=== PATIENT | female | born 1950 | race Caucasian/White ===

== ENCOUNTER 2017-09-14 11:58 | Emergency (ER) | payer MEDICARE, OTHER, SELFPAY ==
[2017-09-14 12:00] VITALS: BP 127/54; PULSE 87; RESP 22; TEMP 36.9; O2SAT 92; BMI 31.3
--- NOTE | 2017-09-14 12:14 | XR_ITS ---
XR chest portable HISTORY: ITS.REASON: non prod cough ORDERING PHYSICIAN: Tamanna Dorantes MD PATIENT AGE: 67 years COMPARISON: 07/02/2016 FINDINGS: The cardiomediastinal silhouette and pulmonary vascularity are within normal limits. Patchy density is present in the left lower lobe consistent with pneumonia. Upper lobes are clear.. No acute bony abnormalities. IMPRESSION: Left lower lobe pneumonia
--- NOTE | 2017-09-14 12:31 | HMH.EDGENADL ---
ED Disposition Clinical Impression: Influenza A, COPD with exacerbation Disposition: Home, Self-Care Condition on Discharge: Good Instructions: Influenza Additional Instructions: Medrol, continue inhalers, see your family MD in one to two days for recheck. Prescriptions: methylPREDNISolone [Medrol] 4 mg PO DAILY #1 tab.ds.pk - Critical Care Critical Care Time: No Attestation: On 09/14/17, the high probability of a clinically significant, sudden or life threatening deterioration of the following system(s) required my full and direct attention, intervention and personal management. The time I documented below is in addition to time spent performing reported procedures but includes the following listed in this critical care notation. Medical Decision Making Vital Signs: 09/14/17 12:00 09/14/17 12:45 09/14/17 14:26 Temperature 98.4 F Temperature Source Oral Pulse Rate 88 Pulse Rate [Left Brachial] 87 86 Respiratory Rate 22 20 Blood Pressure [Right Arm] 127/54 175/91 Blood Pressure Mean [Right Arm] 78 119 Blood Pressure Source [Right Arm] Automatic Cuff Automatic Cuff Blood Pressure Position [Right Arm] Sitting Sitting 02 Sat by Pulse Oximetry 92 L 97 Oxygen Delivery Method Nasal Cannula Nasal Cannula Oxygen Flow Rate (LPM) 3 - Lab Data Lab Results 09/14/17 12:05: Influenza Type A Ag Positive A, Influenza Type B Ag Negative 09/14/17 13:41: WBC 8.1, RBC 4.22, Hgb 13.0, Hct 41.2, MCV 97.8, MCH 30.7, MCHC 31.4 L, RDW 14.0, Plt Count 144, MPV 8.7, Neut % (Auto) 83.1 H, Lymph % (Auto) 11.8, [place] % (Auto) 4.4, Eos % (Auto) 0.6, Baso % (Auto) 0.1, Neut # (Auto) 6.7, Lymph # (Auto) 0.9, [place] # (Auto) 0.4, Eos # (Auto) 0.1, Baso # (Auto) 0.0 09/14/17 13:41: Sodium 142, Potassium 3.5, Chloride 105, Carbon Dioxide 31, Anion Gap 9.5, BUN 6 L, Creatinine 0.67, Estimated Creat Clear 76, Estimated GFR 87, Est GFR ( Amer) 106, Glucose 101, Calcium 7.8 L, Total Bilirubin 0.2, AST 34, ALT 14, Alkaline Phosphatase 114, Total Protein 5.3 L, Albumin 2.1 L, Globulin 3.2, Albumin/Globulin Ratio 0.7 L 09/14/17 13:41: Lactic Acid 1.1 Result diagrams: 09/14/17 13:41 09/14/17 13:41 Orders (Tests/Meds): ED MEDICATIONS Generic Name Dose Route Start Last Admin Trade Name Freq PRN Reason Stop Dose Admin Sodium Chloride 10 ml 09/14/17 12:12 Saline Flush 10ml Syringe IV 10/14/17 12:11 NEEDED PRN Maintain IV Site Sodium Chloride 10 ml 09/14/17 12:47 Saline Flush 10ml Syringe IV 10/14/17 12:46 NEEDED PRN Maintain IV Site Discontinued Medications Generic Name Dose Route Start Last Admin Trade Name Freq PRN Reason Stop Dose Admin Albuterol/Ipratropium 3 ml 09/14/17 12:29 09/14/17 12:43 Duoneb 3ml Neb IH 09/14/17 12:30 3 ml ONCE ONE Administration Sodium Chloride 1,000 mls @ 999 mls/hr 09/14/17 12:15 09/14/17 12:17 Sod Chloride 0.9% 1000ml Bag IV 09/14/17 13:15 999 mls/hr .Q1H1M JACQUELYN Administration Methylprednisolone Sodium Succinate 125 mg 09/14/17 12:25 09/14/17 12:36 Solu-Medrol 125mg/2ml Vial IV 09/14/17 12:26 125 mg ONCE ONE Administration ORDERS Category Date Time Status Chest XR -- portable [XR chest portable] Stat Exams 09/14/17 12:14 Taken - Radiology Data #1 Image(s): Chest Image Reviewed: Yes I reviewed the patient's radiology image Preliminary Findings: Abnormal Atelectasis left base, COPD. - Omega Inquiry Pt receiving controlled substance: No Medical Decision Making Narrative: Afebrile, normal labs except flu, clinically with COPD exacerbation, sats mid to upper 90's, feeling better overall, ready for d/c, has taken Medrol in past and tolerated well. Has inhalers at home. General Adult HPI - General Chief complaint: Upper Respiratory Infection Stated complaint: CONGESTION Time Seen by Provider: 09/14/17 12:20 Mode of Arrival: EMS Limitations: No Limitations Description of
--- NOTE | 2017-09-14 12:34 | ED_ITS ---
ED Disposition Clinical Impression: Influenza A, COPD with exacerbation Disposition: Home, Self-Care Condition on Discharge: Good Instructions: Influenza Additional Instructions: Medrol, continue inhalers, see your family MD in one to two days for recheck. Prescriptions: methylPREDNISolone [Medrol] 4 mg PO DAILY #1 tab.ds.pk - Critical Care Critical Care Time: No Attestation: On 09/14/17, the high probability of a clinically significant, sudden or life threatening deterioration of the following system(s) required my full and direct attention, intervention and personal management. The time I documented below is in addition to time spent performing reported procedures but includes the following listed in this critical care notation. Medical Decision Making Vital Signs: 09/14/17 12:00 09/14/17 12:45 09/14/17 14:26 Temperature 98.4 F Temperature Source Oral Pulse Rate 88 Pulse Rate [Left Brachial] 87 86 Respiratory Rate 22 20 Blood Pressure [Right Arm] 127/54 175/91 Blood Pressure Mean [Right Arm] 78 119 Blood Pressure Source [Right Arm] Automatic Cuff Automatic Cuff Blood Pressure Position [Right Arm] Sitting Sitting 02 Sat by Pulse Oximetry 92 L 97 Oxygen Delivery Method Nasal Cannula Nasal Cannula Oxygen Flow Rate (LPM) 3 - Lab Data Lab Results 09/14/17 12:05: Influenza Type A Ag Positive A, Influenza Type B Ag Negative 09/14/17 13:41: WBC 8.1, RBC 4.22, Hgb 13.0, Hct 41.2, MCV 97.8, MCH 30.7, MCHC 31.4 L, RDW 14.0, Plt Count 144, MPV 8.7, Neut % (Auto) 83.1 H, Lymph % (Auto) 11.8, [place] % (Auto) 4.4, Eos % (Auto) 0.6, Baso % (Auto) 0.1, Neut # (Auto) 6.7 , Lymph # (Auto) 0.9, [place] # (Auto) 0.4, Eos # (Auto) 0.1, Baso # (Auto) 0.0 09/14/17 13:41: Sodium 142, Potassium 3.5, Chloride 105, Carbon Dioxide 31, Anion Gap 9.5, BUN 6 L, Creatinine 0.67, Estimated Creat Clear 76, Estimated GFR 87, Est GFR ( Amer) 106, Glucose 101, Calcium 7.8 L, Total Bilirubin 0.2, AST 34, ALT 14, Alkaline Phosphatase 114, Total Protein 5.3 L, Albumin 2.1 L, Globulin 3.2, Albumin/Globulin Ratio 0.7 L 09/14/17 13:41: Lactic Acid 1.1 Result diagrams: 09/14/17 13:41 09/14/17 13:41 Orders (Tests/Meds): ED MEDICATIONS Generic Name Dose Route Start Last Admin Trade Name Mark Anthonyq PRN Reason Stop Dose Admin Sodium Chloride 10 ml 09/14/17 12:12 Saline Flush 10ml Syringe IV 10/14/17 12:11 NEEDED PRN Maintain IV Site Sodium Chloride 10 ml 09/14/17 12:47 Saline Flush 10ml Syringe IV 10/14/17 12:46 NEEDED PRN Maintain IV Site Discontinued Medications Generic Name Dose Route Start Last Admin Trade Name Mark Anthonyq PRN Reason Stop Dose Admin Albuterol/Ipratropium 3 ml 09/14/17 12:29 09/14/17 12:43 Duoneb 3ml Neb IH 09/14/17 12:30 3 ml ONCE ONE Administration Sodium Chloride 1,000 mls @ 999 mls/hr 09/14/17 12:15 09/14/17 12:17 Sod Chloride 0.9% 1000ml Bag IV 09/14/17 13:15 999 mls/hr .Q1H1M JACQUELYN Administration Methylprednisolone Sodium Succinate 125 mg 09/14/17 12:25 09/14/17 12:36 Solu-Medrol 125mg/2ml Vial IV 09/14/17 12:26 125 mg ONCE ONE Administration ORDERS Category Date Time Status Chest XR -- portable [XR chest portable] Stat Exams 09/14/17 12:14 Taken
[2017-09-14 12:45] VITALS: PULSE 87; PULSE 88
[2017-09-14 13:56] LABS: Basophils % 0.1 % (0.1-2.0); Eosinophils # 0.1 K/mm3 (0.0-0.4); Eosinophils % 0.6 % (0.1-12.0); Hematocrit 41.2 % (37.0-47.0); Lymphocytes # 0.9 K/mm3 (0.7-4.5); Lymphocytes % 11.8 K/mm3 (10-50); Mean Corpuscular HGB Conc 31.4 g/dL (31.8-35.4); Mean Corpuscular Hemoglobin 30.7 pg (27.0-31.2); Mean Corpuscular Volume 97.8 fl (81-99); Mean Platelet Volume 8.7 fl (7.4-10.4); Monocytes # 0.4 K/mm3 (0.1-1.0); Monocytes % 4.4 % (1.7-9.3); Neutrophils # 6.7 K/mm3 (1.8-7.8); Neutrophils % 83.1 % (37.0-80.0); Platelet Count 144 K/mm3 (142-424); Red Blood Count 4.22 M/mm3 (4.20-5.40); White Blood Count 8.1 K/mm3 (4.8-10.8)
[2017-09-14 14:13] LABS: Alanine Aminotransferase 14 U/L (12-78); Albumin Level 2.1 gm/dL (3.4-5.0); Albumin/Globulin Ratio 0.7 (1.1-1.8); Alkaline Phosphatase 114 U/L (46-116); Anion Gap 9.5 mEq/L (5-15); Aspartate Amino Transferase 34 U/L (15-37); Bilirubin,Total 0.2 mg/dL (0.2-1.0); Blood Urea Nitrogen 6 mg/dL (7-18); Calcium 7.8 mg/dL (8.5-10.1); Carbon Dioxide 31 mmol/L (21.0-32.0); Chloride 105 mmol/L (98-107); Creatinine Clearance Estimated 76 mL/min (0-300); Creatinine,Serum 0.67 mg/dL (0.55-1.02); Estimated Glomerular Filt Rate 87 ml/min (>60); GFR (African American) 106 ML/MIN (>60); Globulin 3.2 gm/dl (1.3-3.2); Glucose 101 mg/dL (74-106); Potassium 3.5 mmoL/L (3.5-5.1); Sodium 142 mmol/L (136-145); Total Protein,Serum 5.3 gm/dL (6.4-8.2)
[2017-09-14 14:17] LABS: Lactic Acid 1.1 mmol/L (0.4-2.0)
[2017-09-14 14:26] VITALS: BP 175/91; PULSE 86; RESP 20; O2SAT 97
[2017-09-14 14:51] VITALS: BP 157/78; PULSE 87; RESP 20; TEMP 36.9; O2SAT 92
== END 2017-09-14 14:53 | disposition home or self-care (01) ==
PROVIDERS: Emergency Provider Emergency Medicine; Family Provider Nurse Practitioner Family
DX: J44.1 Chronic obstructive pulmonary disease with (acute) exacerbation (principal); J10.1 Influenza due to other identified influenza virus with other respiratory manifestations
CPT/HCPCS: 71045; 80053; 83605; 85025; 87275; 87276; 96365; 96374; 96375; 99284

== ENCOUNTER → 2018-06-16 14:32 | Outpatient (REF) | payer MEDICARE, OTHER, SELFPAY ==
[2018-06-16 18:18] LABS: Basophils % 0.3 % (0.1-2.0); Eosinophils # 0.2 K/mm3 (0.0-0.4); Eosinophils % 3.2 % (0.1-12.0); Hematocrit 40.8 % (37.0-47.0); Hemoglobin 12.6 g/dL (12.2-16.2); Lymphocytes # 2.2 K/mm3 (0.7-4.5); Lymphocytes % 34.7 K/mm3 (10-50); Mean Corpuscular Hemoglobin 31.4 pg (27.0-31.2); Mean Corpuscular Volume 101.4 fl (81-99); Mean Platelet Volume 9.4 fl (7.4-10.4); Monocytes # 0.5 K/mm3 (0.1-1.0); Monocytes % 7.4 % (1.7-9.3); Neutrophils # 3.5 K/mm3 (1.8-7.8); Neutrophils % 54.4 % (37.0-80.0); Platelet Count 362 K/mm3 (142-424); Red Blood Count 4.02 M/mm3 (4.20-5.40); Red Cell Distribution Width 14.6 % (11.5-17.5); White Blood Count 6.4 K/mm3 (4.8-10.8)
[2018-06-16 18:35] LABS: Alanine Aminotransferase 27 U/L (12-78); Albumin Level 2.5 gm/dL (3.4-5.0); Albumin/Globulin Ratio 0.8 (1.1-1.8); Alkaline Phosphatase 197 U/L (46-116); Anion Gap 7.2 mEq/L (5-15); Aspartate Amino Transferase 24 U/L (15-37); Bilirubin,Total 0.2 mg/dL (0.2-1.0); Blood Urea Nitrogen 18 mg/dL (7-18); Calcium 8.6 mg/dL (8.5-10.1); Carbon Dioxide 30 mmol/L (21.0-32.0); Chloride 107 mmol/L (98-107); Chol/HDL Ratio 2.2 (1-3.5); Cholesterol 158 mg/dL (140-200); Creatinine,Serum 0.75 mg/dL (0.55-1.02); Estimated Glomerular Filt Rate 76 ml/min (>60); GFR (African American) 92 ML/MIN (>60); Globulin 3.1 gm/dl (1.3-3.2); Glucose 77 mg/dL (74-106); HDL Cholesterol 72 mg/dL (29-89); LDL Cholesterol 63 mg/dL (0-130); Potassium 4.2 mmoL/L (3.5-5.1); Sodium 140 mmol/L (136-145); T4 (Thyroxine) 5.6 ug/dl (4.7-13.3); Total Protein,Serum 5.6 gm/dL (6.4-8.2); Triglycerides 113 mg/dL (30-200); VLDL Cholesterol 23 mg/dL (0-40)
[2018-06-20 06:15] LABS: Vitamin D 25 Hydroxy 46.7 ng/mL (30.0-100.0)
== END ==
LOC: LAB 14:32
PROVIDERS: Visit Provider Nurse Practitioner Family
DX: R53.83 Other fatigue (principal); Z79.899 Other long term (current) drug therapy
CPT/HCPCS: 80053; 80061; 82652; 84436; 84443; 85025

== ENCOUNTER → 2018-06-23 11:24 | Outpatient (CLI) | payer MEDICARE, OTHER, SELFPAY ==
--- NOTE | 2018-06-23 11:28 | NVE_ITS ---
Venous Exam Indications: 729.81 Swelling of limb. 729.5 Pain in limb. Discoloration lower extremities IMPRESSIONS 1. There is no evidence of significant Reflux. 2. No evidence of deep or superficial vein thrombosis involving the left lower extremity 3. No evidence of deep or superficial vein thrombosis involving the right lower extremity Complete lower extremity venous duplex evaluation. Doppler flow study including spectral analysis, color and luo scale imaging. Location: Vascular laboratory. Patient status: Outpatient. CRITICAL FINDINGS - Reported to: lakisha - Read back and verified. - 06/23/18 1130 - None Tables: Venous flow and imaging: + +-------+ + Location Overall Flow properties + +-------+ + Right common femoral Patent Normal phasicity; spontaneous; normal augmentation; compressible + +-------+ + Right saphenofemoral junction Patent Compressible + +-------+ + Right profunda femoral Patent Compressible + +-------+ + Right femoral Patent Normal phasicity; spontaneous; normal augmentation; compressible; no reflux + +-------+ + Right greater saphenous Patent Normal phasicity; spontaneous; normal augmentation; compressible + +-------+ + Right popliteal Patent Normal phasicity; spontaneous; normal augmentation; compressible + +-------+ + Right posterior tibial Patent Compressible + +-------+ + Right peroneal Patent Compressible + +-------+ + Right gastrocnemius Patent Compressible + +-------+ + Right soleal Patent Compressible + +-------+ + Left common femoral Patent Normal phasicity; spontaneous; normal augmentation; compressible + +-------+ + Left saphenofemoral junction Patent Compressible + +-------+ + Left profunda femoral Patent Compressible + +-------+ + Left femoral Patent Normal phasicity; spontaneous; normal augmentation; compressible + +-------+ + Left greater saphenous Patent Normal phasicity; spontaneous;
--- NOTE | 2018-06-23 11:34 | XR_ITS ---
XR chest 2V HISTORY: Shortness of air with cough ITS.REASON: elevated alk phos ORDERING PHYSICIAN: Andrea Murphy MD PATIENT AGE: 68 years COMPARISON: 09/14/2017 FINDINGS: The cardiomediastinal silhouette and pulmonary vascularity are within normal limits. No lobar consolidation or collapse is evident. There is faint opacity noted in the left lung base has a somewhat rounded contour measuring 16 mm. While this could represent summation artifact, an underlying pulmonary nodule is also considered. This is present on 2 PA views of the chest. Is not readily apparent on previous studies however, there was pneumonia in this region on the most recent radiograph of 09/14/2017. The remaining lungs are clear. There are degenerative changes in the thoracic spine. Surgical clips are present along the left hemidiaphragm. IMPRESSION: Faint nodular opacity in the left lung base possibly due to summation artifact. Consider follow-up to confirm stability or resolution. If this persists, then CT may be of further value in this patient with elevated alkaline phosphatase
[2018-06-23 13:15] LABS: C-Reactive Protein 0.9 mg/L (0.0-0.9)
[2018-06-23 15:26] LABS: Erythrocyte Sedimentation Rate 23 mm/hr (0-30)
== END ==
PROVIDERS: Nurse Practitioner Family; PCP Emergency Medicine; Visit Provider Internal Medicine Cardiovascular Disease
DX: L81.9 Disorder of pigmentation, unspecified (principal); M79.661 Pain in right lower leg; M79.662 Pain in left lower leg; R60.9 Edema, unspecified; R74.8 Abnormal levels of other serum enzymes
CPT/HCPCS: 36415; 71046; 85651; 86140; 93970

== ENCOUNTER → 2018-06-28 07:08 | Outpatient (CLI) | payer MEDICARE, OTHER, SELFPAY ==
--- NOTE | 2018-06-28 07:10 | CA_ITS ---
PROCEDURE: 2-D M-mode and color Doppler study INDICATIONS FOR THE TEST: Chest pain COPD+ Heart Murmur+ Tobacco Smoking Palpitations+ Fatigue Syncope Edema+ Hypertension+Diabetes Mellitus Rheumatic Fever SOB+ZAIDI Obesity Hyperlipidemia Family History HD Additional History Abn EKG PATIENT INFORMATION HEIGHT: 67 WEIGHT: 158 GENDER: Female B/P: 130/78 2-D/M-MODE INTERPRETATION: 2-D MEASUREMENTS OBSERVED VALUES IN CMS Right Ventricular Dimension (RVDd) 2.8 Interventricular Septum (Thickness)(IVsd) 1.0 Left Ventricular Internal Dimensions(LVIDd) 4.5 Left Ventricular Posterior Wall (Thickness)(LVPWd) 1.0 Aortic Root 3.1 Aortic Cusp Separation 2.3 Left Atrial Dimensions (LAD) 4.8 2D 1. Left atrium is moderately enlarged, left ventricle is normal size, there is no concentric left ventricular hypertrophy, visually estimated ejection fraction of 55% with no regional wall motion abnormality. 2. The right atrium and right ventricle are mildly enlarged with normal contractility. 3. The aortic valve is minimally thickened and fibrosed. 4. The mitral and tricuspid valve are grossly normal. 5. The pulmonic valve is poorly visualized. 6. No significant pericardial effusion noted. DOPPLER INTERROGATION: Doppler interrogation of the aortic, mitral and tricuspid valvular presence of mild mitral and tricuspid regurgitation, tricuspid regurgitation jet velocity is inadequate for calculation of the right ventricular systolic pressure, diastolic parameters are inconclusive. CONCLUSION: 1. Moderately enlarged left atrium, normal left ventricular size, visually estimated ejection fraction 55% with no regional wall motion abnormality, diastolic parameters are inconclusive. 2. Mild mitral and tricuspid regurgitation 3. No significant pericardial effusion noted.
--- NOTE | 2018-06-28 07:10 | NM_ITS ---
CARDIOLITE SPECT MYOCARDIAL PERFUSION SCAN, REST AND STRESS: EXERCISE STRESS [facility] REVIEW QGS EF AND WALL MOTION EVALUATION: QPS - PERFUSION EVALUATION HISTORY: SOB, Fatigue, Tobacco use DOSE: 10.17 mCi technetium 99m mibi intravenously at rest followed by 31.9 mCi technetium 99m mibi following the intravenous ministration of 0.4 mg of Lexiscan. Resting blood pressure is 136/73. Stress blood pressure 123/70. FINDINGS: Ejection fraction is calculated to be 61%. Stress images reveal severely decreased activity in the anterior lateral and apical wall. Rest images reveal improved myocardial activity. IMPRESSION: High risk abnormal stress test with anterior lateral and apical reversible ischemia combined by normal ejection fraction but apical hypokinesis
--- NOTE | 2018-06-28 08:42 | HMH.ITSHM ---
Current Home Medications as stated by this patient Abi Jones or senior patient account representative. []BUSPIRONE VITAMIN B12 POLYETHYLENE ODANSETRON PANTOPRAZOLE MIRTAZAPINE FUROSEMIDE ASA ATORVASTATIN METOPROLOL
== END ==
PROVIDERS: Family Provider Nurse Practitioner Family; PCP Emergency Medicine; Visit Provider Internal Medicine Cardiovascular Disease
DX: F32.9 Major depressive disorder, single episode, unspecified (principal); F41.9 Anxiety disorder, unspecified; J44.1 Chronic obstructive pulmonary disease with (acute) exacerbation; L81.9 Disorder of pigmentation, unspecified; M79.661 Pain in right lower leg; M79.662 Pain in left lower leg; R06.09 Other forms of dyspnea; R60.9 Edema, unspecified; R94.31 Abnormal electrocardiogram [ECG] [EKG]
CPT/HCPCS: 78452; 93017; 93306; A9502; J2785

== ENCOUNTER → 2018-07-22 13:34 | Outpatient (CLI) | payer MEDICARE, OTHER, SELFPAY ==
--- NOTE | 2018-07-22 13:38 | CT_ITS ---
CT chest wo con HISTORY: Follow-up pulmonary nodule ITS.REASON: nodule ORDERING PHYSICIAN: Alina George PATIENT AGE: 68 years COMPARISON: None Technique: Axial images obtained with sagittal and coronal reformats. All CT scans at the facility use one or more dose reduction, viz: automated exposure control, ma/kV adjustment per patient size (including targeted exams where dose is matched to indication, i.e. head), or iterative reconstruction technique. FINDINGS: There are scattered small nodes within the mediastinum some which are calcified. Coronary artery calcification is present. Normal heart size without evidence of pericardial effusion. There is hyperinflation with attenuation of the pulmonary vessels and bronchial thickening consistent with COPD. There are a few scattered noncalcified pulmonary nodules including a 4 mm nodule in the right upper lobe, image #33, 5 mm nodule left upper lobe centrally image #43, 6 mm nodule within the major fissure on the left image #45, 4 mm nodule also within the major fissure on the left with central lucency image #45. Fibrotic or atelectatic changes are present in the left lung base. Surgical clips are present from prior gastric surgery. There are fibrotic changes within the right middle lobe.. Nodular density in the lingula also noted at 8 mm and may correspond to the radiographic abnormality. No acute bony findings. There is some cortical irregularity involving the lower aspect of the manubrium anteriorly consistent with an old manubrial fracture. Upper abdominal images are unremarkable. IMPRESSION: 1. Scattered noncalcified pulmonary nodules as described above with the largest nodule in the lingula at 8 mm. These are nonspecific. Recommend 6 month follow-up in this patient high-risk patient. 2. COPD. Coronary artery calcifications are also noted
== END ==
PROVIDERS: PCP Nurse Practitioner Family; Visit Provider Nurse Practitioner Family
DX: R91.1 Solitary pulmonary nodule (principal)
CPT/HCPCS: 71250

== ENCOUNTER → 2018-08-09 13:09 | Outpatient (CLI) | payer MEDICARE, OTHER, SELFPAY ==
--- NOTE | 2018-08-09 13:12 | XR_ITS ---
XR hip LT 2-3V w/pelvis HISTORY: Left hip pain ITS.REASON: pain ORDERING PHYSICIAN: Alina George PATIENT AGE: 68 years COMPARISON: 09/23/2016 FINDINGS: There is a left femoral decompression screw with a short intramedullary josselin. There is an old intertrochanteric fracture with minimal displacement of small lesser trochanteric fragment. No obvious orthopedic complications. There is sclerosis of the superior aspect of the SI joint. As is not significant change from 09/23/[address] scan of 02/08/2015 IMPRESSION: 1. No acute finding. 2. Prior ORIF left hip with good alignment with no acute finding
== END ==
PROVIDERS: PCP Emergency Medicine; Visit Provider Nurse Practitioner Family
DX: M25.552 Pain in left hip (principal)
CPT/HCPCS: 73502

== ENCOUNTER → 2018-08-19 11:40 | Outpatient (CLI) | payer MEDICARE, OTHER, SELFPAY ==
[2018-08-19 13:25] LABS: Anion Gap 13.1 mEq/L (5-15); Blood Urea Nitrogen 12 mg/dL (7-18); Calcium 8.9 mg/dL (8.5-10.1); Carbon Dioxide 28 mmol/L (21.0-32.0); Chloride 104 mmol/L (98-107); Creatinine,Serum 0.81 mg/dL (0.55-1.02); Estimated Glomerular Filt Rate 70 ml/min (>60); GFR (African American) 85 ML/MIN (>60); Glucose 93 mg/dL (74-106); Potassium 4.1 mmoL/L (3.5-5.1); Sodium 141 mmol/L (136-145)
== END ==
PROVIDERS: Visit Provider Physician Assistant
DX: R06.02 Shortness of breath (principal); Z79.899 Other long term (current) drug therapy
CPT/HCPCS: 36415; 80048; 83880

== ENCOUNTER → 2018-09-08 15:48 | Outpatient (CLI) | payer MEDICARE, OTHER, SELFPAY ==
--- NOTE | 2018-09-08 15:53 | XR_ITS ---
XR chest 2V HISTORY: Shortness of breath ITS.REASON: sob ORDERING PHYSICIAN: Alina George PATIENT AGE: 68 years COMPARISON: 07/22/2018 and 06/23/2018 FINDINGS: The cardiomediastinal silhouette and pulmonary vascularity are within normal limits. There is hyperinflation with attenuation of the peripheral pulmonary vessels consistent with COPD. Previously noted increased density along the cardiac apex on the left has become more prominent within additional area of increased density along the left heart border slightly more superior and also increased density in the right lobe. Bilateral pneumonia is suspected. No effusions. No acute bony anomalies. IMPRESSION: COPD with bilateral pneumonia
== END ==
PROVIDERS: PCP Emergency Medicine; Visit Provider Nurse Practitioner Family
DX: R06.02 Shortness of breath (principal)
CPT/HCPCS: 71046

== ENCOUNTER → 2018-09-15 14:51 | Outpatient (CLI) | payer MEDICARE, OTHER, SELFPAY | PROVIDERS: Visit Provider Nurse Practitioner Family | DX: N39.0 Urinary tract infection, site not specified (principal) | CPT/HCPCS: 87086 ==

== ENCOUNTER → 2018-10-17 12:50 | Outpatient (CLI) | payer MEDICARE, OTHER, SELFPAY ==
--- NOTE | 2018-10-17 13:01 | XR_ITS ---
EXAM: XR lumbar spine min 4V HISTORY: ITS.REASON: back pain ORDERING PHYSICIAN: Alina George PATIENT AGE: 68 years COMPARISON: None FINDINGS: Mild lumbar curvature convex right. There is mild H or listhesis of L3 on L4 6 mm. Degenerative disc disease is present at L3-L4 L4-5 and L5-S1. There is slight decrease in height of the superior endplate of L5 as well as the superior and inferior endplates of L3. No lytic or blastic change. Sclerosis is present involving the left SI joint superiorly. Facet arthritic changes are present from L3 to S1. There is 4 to 5 mm anterolisthesis of L4 on L5 IMPRESSION: 1. Degenerative disc disease with anterolisthesis of L3 and L4 2. Mild endplate deformities of L3 and L5 consistent with mild compression changes age indeterminate.
== END ==
PROVIDERS: PCP Emergency Medicine; Visit Provider Nurse Practitioner Family
DX: M54.5 Low back pain (principal)
CPT/HCPCS: 72110

== ENCOUNTER → 2018-11-25 14:23 | Outpatient (CLI) | payer MEDICARE, OTHER, SELFPAY | PROVIDERS: PCP Emergency Medicine; Visit Provider Physician Assistant | DX: G47.33 Obstructive sleep apnea (adult) (pediatric) (principal); J44.9 Chronic obstructive pulmonary disease, unspecified | CPT/HCPCS: G0399 ==

== ENCOUNTER 2019-01-14 11:23 | Observation (INO) ==
--- NOTE | 2019-01-14 11:50 | Emergency Department Note ---
ED Disposition Clinical Impression: Hypertension, Pneumonia, Ureteric stone, Ureteric colic, Constipation Disposition: Still a Patient Condition on Discharge: Fair Referrals: Gabino Tesfaye MD [Primary Care Provider] - - Critical Care Critical Care Time: No Attestation: On 01/14/19, the high probability of a clinically significant, sudden or life threatening deterioration of the following system(s) required my full and direct attention, intervention and personal management. The time I documented below is in addition to time spent performing reported procedures but includes the following listed in this critical care notation. Medical Decision Making - Omega Inquiry Pt receiving controlled substance: No Omega was queried for this patient: No Vital Signs: 01/14/19 11:23 01/14/19 12:06 Temperature 98.1 F Temperature Source Oral Pulse Rate [Left Radial] 103 H 74 Respiratory Rate 18 12 Blood Pressure [Right Radial Artery] 131/100 H 132/98 H Blood Pressure Mean [Right Radial Artery] 110 109 Blood Pressure Source [Right Radial Artery] Automatic Cuff Manual Cuff/ Auscultation Blood Pressure Position [Right Radial Artery] Sitting Sitting 02 Sat by Pulse Oximetry 91 L 94 L Oxygen Delivery Method Room Air Room Air - Lab Data Lab Results 01/14/19 11:30: Urine Color Yellow, Urine Appearance Clear, Urine pH 6.5, Ur Specific [place] 1.010, Urine Protein Negative, Urine Glucose (UA) Negative, Urine Ketones Negative, Urine Blood Trace-i, Urine Nitrate Negative, Urine Bilirubin Negative, Urine Urobilinogen 0.2, Ur Leukocyte Esterase Negative, Urine RBC 3-5, Urine WBC 5-10, Ur Squamous Epith Cells 10-20, Urine Bacteria 1+ 01/14/19 11:40: WBC 8.4, RBC 5.33, Hgb 16.6 H, Hct 49.7 H, MCV 93.3, MCH 31.1, MCHC 33.4, RDW 12.8, Plt Count 260, MPV 8.3, Neut % (Auto) 66.5, Lymph % (Auto) 26.1, [place] % (Auto) 6.4, Eos % (Auto) 0.6, Baso % (Auto) 0.3, Neut # (Auto) 5.6, Lymph # (Auto) 2.2, [place] # (Auto) 0.5, Eos # (Auto) 0.1, Baso # (Auto) 0.0 05/11/19 11:40: Sodium 135 L, Potassium 3.4 L, Chloride 98, Carbon Dioxide 29, Anion Gap 11.4, BUN 8, Creatinine 0.86, Estimated Creat Clear 60, Estimated GFR 65, Est GFR ( Amer) 79, Glucose 127 H, Calcium 9.1, Total Bilirubin 0.5, AST 23, ALT 21, Alkaline Phosphatase 169 H, Troponin I < 0.02, Total Protein 8.3 H D, Albumin 4.0, Globulin 4.3 H, Albumin/Globulin Ratio 0.9 L, Lipase 117 Result diagrams: 01/14/19 11:40 01/14/19 11:40 Orders (Tests/Meds): ED MEDICATIONS Discontinued Medications Generic Name Dose Route Start Last Admin Trade Name Freq PRN Reason Stop Dose Admin Morphine Sulfate 2 mg 01/14/19 11:48 01/14/19 11:55 Morphine 2mg/Ml Syringe IV 01/14/19 11:49 2 mg ONCE ONE Administration Morphine Sulfate 2 mg 01/14/19 12:47 01/14/19 12:40 Morphine 2mg/Ml Syringe IV 01/14/19 12:48 2 mg ONCE ONE Administration Ondansetron HCl 4 mg 01/14/19 11:48 01/14/19 11:55 Zofran 4mg/2ml Vial IV 01/14/19 11:49 4 mg ONCE ONE Administration ORDERS Category Date Time Status CT abdomen pelvis wo/w con Stat Cat Scan 01/14/19 11:46 Taken Lactic Acid Stat Lab 01/14/19 12:50 Ordered Blood Culture Stat Micro 01/14/19 12:50 Ordered - CT Data CT Scan: Abdomen, Pelvis Time Received: 12:[address] Reviewed: Yes: I discussed the CT results w/the radiologist Preliminary Findings: Abnormal Medical Decision Narrative: I received a phone call from Dr. Palmer the radiologist who noted pneumonia with secondary to a possible endobronchial lesion. The patient has required 2 doses of morphine for pain control so far. She has no vomiting or diarrhea. The patient was informed of her abnormal type pneumonia and the need for follow- up until final diagnosis. She verbalized understanding and the was at the bedside. [address] Zuniga aeronautical test engineer for Dr. Tesfaye who recommended the patient to be admitted for IV antibiotic Levaquin, pain control, and IV fluids. Abdominal Pain HPI - General Stated Complaint: stomach and back pain Time Seen by Provider: 01/14/19 11:30 Mode of Arrival: Ambulatory Source of Information: Patient, Spouse Limitations: No Limitations - History of Present Illness HPI narrative: 68 years old white female with history of notable abdominal surgeries including cholecystectomy and appendectomy is in the 1970s. Hysterectomy in the and most recent surgeries a gastric bypass in 2005. she has history of hypertension. Yesterday morning the patient developed gradual progressive pain on the left side of the abdomen radiating to the left flank region associated with nausea and dry heaves. The patient admitted for having polyuria with a small amount without dysuria or hematuria. He denies having hematemesis coffee- ground emesis melanotic stool or bleeding per rectum. She denies having chest pain, as of air, palpitations, or hemoptysis. She denies having numbness or tingling involving the lower extremities there is no loss of urine or bowel control. MD complaint: flank pain Onset (ago): day(s) Consistency: constant Location: LLQ, L flank Severity: severe Severity scale (1-10): 10 Quality: sharp Radiation: L flank Relieving factors: nothing Exacerbating factors: nothing Associated symptoms: nausea, other (Polyuria. ) - Related Data Home Medications Medication Instructions Recorded Confirmed cyanocobalamin (vit B-12) 100 mcg 100 mcg PO DAILY 06/16/18 01/14/19 tablet aspirin 81 mg tablet,delayed 81 mg PO DAILY 06/23/18 01/14/19 release atorvastatin 10 mg tablet 10 mg PO DAILY 06/23/18 01/14/19 metoprolol succinate ER 25 mg 25 mg PO DAILY 06/23/18 01/14/19 tablet,extended release 24 hr furosemide 20 mg tablet 20 mg PO DAILY 07/04/18 01/14/19 ipratropium bromide 17 1 puff INHALATION Q6H 08/08/18 01/14/19 mcg/actuation HFA aerosol inhaler buspirone 10 mg tablet 10 mg PO TID 30 Days #90 tab 08/19/18 01/14/19 clonidine HCl 0.1 mg tablet 0.1 mg PO QHS 30 Days #30 tab 08/19/18 01/14/19 dicyclomine 10 mg capsule 10 mg PO ONCE #60 cap 12/30/18 01/14/19 doxepin 10 mg capsule 10 mg PO DAILY #30 cap 12/30/18 01/14/19 hydroxyzine HCl 25 mg tablet 25 mg PO BID #60 tab 12/30/18 01/14/19 mirtazapine 45 mg tablet 45 mg PO DAILY #30 tab 12/30/18 01/14/19 potassium chloride ER 20 mEq 20 meq PO DAILY #90 tab 12/30/18 01/14/19 tablet,extended release(part/cryst) raloxifene 60 mg tablet 60 mg PO DAILY #30 tab 12/30/18 01/14/19 Estradiol 1 mg PO QDAY 01/14/19 01/14/19 Losartan Potassium 25 mg PO DAILY 01/14/19 01/14/19 Allergies Allergy/AdvReac Type Severity Reaction Status Date / Time codeine Allergy Mild Verified 12/30/18 13:34 budesonide [From SYMBICORT] Allergy Unknown Verified 12/30/18 13:34 formoterol [From SYMBICORT] Allergy Unknown Verified 12/30/18 13:34 [facility] History - Hepatitis A Screen Attestation statement:: This patient has been screened for Hepatitis A risk factors. I have reviewed the patient's past medical history: Yes Medical History: Reports:: Anxiety, Asthma, Cancer, Chronic Obstructive Pulmonary Disease (COPD), Depression, Gastroesophageal Reflux Disease(GERD), Heart Murmur, Hyperlipidemia, Hypertension Denies:: Diabetes Mellitus Type 1, Diabetes Mellitus Type 2, Internal Pacemaker, MRSA, Osteoporosis, Seizures, Transient Ischemic Attacks (TIA) Other Medical History: Reports: Arthritis, Cataracts. Denies: Blood Transfusion Reaction, Chemotherapy, Fibromyalgia, Liver Disease, Osteoporosis, Sinus Problems, Thyroid Disease Comment: Hypertension. Anxiety disorder. Hypercholesterolemia. back pain due to arthritis. osteopenia. ventral hernia. Kidney stone. Incontinence Laterality Cases: Other Surgeries: Yes: Appendectomy, Bariatric Surgery, Cardiac Catheterization, Cholecystectomy, Colonoscopy, EGD, Hernia Repair, Hysterectomy-Total, Skin Cancer Excision, Tubal Ligation. No: Cardiac Surgery, Coronary Stent, Pacemaker, Plastic Surgery Amputation: No Fractures: No Comment: appy (open) 1969's. Cholecystectomy 1979. exp lap for possible ectopic . Rt. breast surgery benign tumor 1985. LAVH 1986. RT. KNEE SURGERY 1990. CARPAL TUNNEL BOTH WRISTS 1994. BSO (open) 2006. HERNIA REPAIR 2006. REPEAT HERNIA REPAIR 2006. GASTRIC BYPASS 2004. Triple hernia repairs (abdominal) 2007. Total right knee replacement 06/2012. Total right knee revision 08/2012. LEFT HIP REPAIR---01/2018 - Social History Smoking Status: Current every day smoker Tobacco Type: cigarettes # Packs/Day (cigarettes): 1 Alcohol Intake: never Alcohol Intake Frequency:: other Substance Use Type: denies use Occupational Status: retired Housing: house Household Members: none - Psychiatric History Pschychiatric History:: Reports:: Anxiety, Depression Family Hx:: Coronary Artery Disease, Stroke ROS Obtained: Yes All systems reviewed & no additional complaints Physical Exam - General General appearance: alert, in no apparent distress - Head Head exam: atraumatic, normocephalic, normal inspection - Eye Eye exam: Present: normal appearance, PERRL, EOMI. Absent: scleral icterus, nystagmus - ENT ENT exam: Present: normal exam, normal oropharynx, mucous membranes moist, TM's normal bilaterally, normal external ear exam - Neck Neck exam: Present: normal inspection, full ROM, trachea midline. Absent: tenderness, meningismus, lymphadenopathy - Chest Chest inspection: Present: normal inspection, symmetric chest wall rise. Absent: tenderness - Respiratory Respiratory exam: Present: normal lung sounds bilaterally. Absent: respiratory distress, wheezes - Cardiovascular Cardiovascular exam: Present: regular rate, normal rhythm, normal heart sounds. Absent: JVD - Abdominal Exam Abdominal exam: Present: soft, tenderness, normal bowel sounds, other (Well- healed scars of prior surgeries, soft abdomen to palpation with a focal tenderness in the left flank region, no guarding no cross tenderness no rebound.). Absent: distention, guarding, rebound, rigidity, Burton's sign, tenderness at McBurney's Point - External exam: Present: normal external exam, other (Equal strong bilateral femoral pulsations.) - Extremities Exam Extremities exam: Present: normal inspection, full ROM, normal capillary refill. Absent: calf tenderness - Back Exam Back exam: Present: normal inspection, CVA tenderness (L). Absent: tenderness, CVA tenderness (R), muscle spasm, paraspinal tenderness, vertebral tenderness - Neurological Exam Neurological exam: Present: alert, oriented X3, CN II-XII intact, motor sensory deficit - Psychiatric Psychiatric exam: Present: normal affect, normal mood - Skin Skin exam: Present: warm, dry, intact, normal color - Lymphatic Lymphatic Findings: no adenopathy
[2019-01-14 11:53] LABS: Microscopic, Urine URINE MICROSCOPIC (MICROSCOPIC)
[2019-01-14 11:55] LABS: Basophils % 0.3 % (0.1-2.0); Eosinophils # 0.1 K/mm3 (0.0-0.4); Eosinophils % 0.6 % (0.1-12.0); Hematocrit 49.7 % (37.0-47.0); Hemoglobin 16.6 g/dL (12.2-16.2); Lymphocytes # 2.2 K/mm3 (0.7-4.5); Lymphocytes % 26.1 % (10-50); Mean Corpuscular HGB Conc 33.4 g/dL (31.8-35.4); Mean Corpuscular Hemoglobin 31.1 pg (27.0-31.2); Mean Corpuscular Volume 93.3 fl (81-99); Mean Platelet Volume 8.3 fl (7.4-10.4); Monocytes # 0.5 K/mm3 (0.1-1.0); Monocytes % 6.4 % (1.7-9.3); Neutrophils # 5.6 K/mm3 (1.8-7.8); Neutrophils % 66.5 % (37.0-80.0); Platelet Count 260 K/mm3 (142-424); Red Blood Count 5.33 M/mm3 (4.20-5.40); Red Cell Distribution Width 12.8 % (11.5-17.5); White Blood Count 8.4 K/mm3 (4.8-10.8)
[2019-01-14 11:56] LABS: Appearance,Urine CLEAR (Clear); Bilirubin,Urine Negative (Negative); Blood, Urine TRACE-I (Negative); Color,Urine YELLOW (Yellow); Glucose,Urine (UA) Negative (Negative); Ketones,Urine Negative (Negative); Leukocyte Esterase,Urine Negative (Negative); PH,Urine 6.5 (5.0-8.5); Protein,Urine Negative (Negative); Urobilinogen,Urine 0.2 EU/dl (0.2)
[2019-01-14 12:06] LABS: Bacteria,Urine 1+ /lpf
[2019-01-14 12:09] LABS: Alanine Aminotransferase 21 U/L (12-78); Albumin/Globulin Ratio 0.9 (1.1-1.8); Alkaline Phosphatase 169 U/L (46-116); Anion Gap 11.4 mEq/L (5-15); Aspartate Amino Transferase 23 U/L (15-37); Bilirubin,Total 0.5 mg/dL (0.2-1.0); Blood Urea Nitrogen 8 mg/dL (7-18); Calcium 9.1 mg/dL (8.5-10.1); Carbon Dioxide 29 mmol/L (21.0-32.0); Chloride 98 mmol/L (98-107); Globulin 4.3 gm/dl (1.3-3.2); Glucose 127 mg/dL (74-106); Lipase 117 u/L (73-393); Potassium 3.4 mmoL/L (3.5-5.1); Sodium 135 mmol/L (136-145); Total Protein,Serum 8.3 gm/dL (6.4-8.2)
[2019-01-15 07:00] LABS: Basophils % 0.2 % (0.1-2.0); Eosinophils # 0.1 K/mm3 (0.0-0.4); Eosinophils % 2.6 % (0.1-12.0); Hematocrit 43.6 % (37.0-47.0); Lymphocytes # 1.6 K/mm3 (0.7-4.5); Lymphocytes % 32.7 % (10-50); Mean Corpuscular HGB Conc 32.8 g/dL (31.8-35.4); Mean Corpuscular Hemoglobin 30.9 pg (27.0-31.2); Mean Corpuscular Volume 94.1 fl (81-99); Mean Platelet Volume 8.5 fl (7.4-10.4); Monocytes # 0.4 K/mm3 (0.1-1.0); Monocytes % 7.7 % (1.7-9.3); Neutrophils # 2.7 K/mm3 (1.8-7.8); Neutrophils % 56.7 % (37.0-80.0); Platelet Count 191 K/mm3 (142-424); Red Blood Count 4.63 M/mm3 (4.20-5.40); Red Cell Distribution Width 12.8 % (11.5-17.5); White Blood Count 4.8 K/mm3 (4.8-10.8)
[2019-01-15 07:07] LABS: Hemoglobin 14.3 g/dL (12.2-16.2)
[2019-01-15 07:12] LABS: Anion Gap 10.9 mEq/L (5-15); Calcium 8.7 mg/dL (8.5-10.1); Potassium 3.9 mmoL/L (3.5-5.1)
--- NOTE | 2019-01-15 09:35 | History & Physical Report ---
*Admission Date: 01/15/19 *Chief complaint: abd pain *History of present illness: 68 years old female with history of abdominal surgeries including cholecystectomy,appendectomy, Hysterectomy and a gastric bypass. Pt states 2 days ago she developed gradual progressive pain on the left side of the abdomen radiating to the left flank region associated with nausea and dry heaves. She denies having hematemesis coffee-ground emesis,melanotic stool or bleeding per rectum. Pt admitted for pneumonia and kidney stone [facility] History I have reviewed the patient's past medical history: Yes Medical History: Reports:: Anxiety, Asthma, Chronic Obstructive Pulmonary Disease (COPD), Depression, Gastroesophageal Reflux Disease(GERD), Heart Murmur, Hyperlipidemia, Hypertension Denies:: Cancer, Diabetes Mellitus Type 1, Diabetes Mellitus Type 2, Internal Pacemaker, MRSA, Osteoporosis, Seizures, Transient Ischemic Attacks (TIA) *Have you ever received a pneumonia vaccine?: Yes *Have you received a flu vaccine this season?: Yes Other Medical History: Reports: Arthritis, Cataracts. Denies: Blood Transfusion Reaction, Chemotherapy, Fibromyalgia, Liver Disease, Osteoporosis, Sinus Problems, Thyroid Disease Laterality Cases: Left: Arthroscopy Hip, Bilateral: Carpal Tunnel Release Other Surgeries: Yes: Appendectomy, Bariatric Surgery, Cardiac Catheterization, Cholecystectomy, Colonoscopy, EGD, Hernia Repair, Hysterectomy-Total, Skin Cancer Excision, Tubal Ligation. No: Cardiac Surgery, Coronary Stent, Pacemaker, Plastic Surgery Amputation: No Fractures: No - *Social History Educational Level: Completed High School Smoking Status: Current every day smoker Tobacco Type: cigarettes # Packs/Day (cigarettes): 1 Alcohol Intake: never Alcohol Intake Frequency:: other Substance Use Type: denies use *Occupational Status:: retired Housing: house Household Members: spouse *Travel in the last 8 weeks: None - Psychiatric History Expresses thoughts of harming self/others: None Suicide Plan Description: No Plan Pschychiatric History:: Reports:: Anxiety, Depression Family Hx:: Coronary Artery Disease, Stroke Review of Systems - Review of Systems Review of systems:: pertinent systems reviewed and negative unless documented below - Constitutional Denies chills, Denies fever(s) - Eyes Denies change in vision - ENT Denies bleeding gums, Denies neck pain, Denies nose pain - *Cardiovascular Reports shortness of breath, Denies chest pain with activity - *Respiratory Denies cough - *Gastrointestinal Reports nausea, Reports vomiting, Denies change in bowel habits - *Genitourinary Reports pelvic pain, Reports other - *Musculoskeletal Denies decreased muscle mass - Integumentary/Breasts Denies rash - *Neurologic Denies abnormal hearing - Psychiatric Denies lack of enjoyment - Endocrine Denies increased thirst - Hematologic/Lymphatic Denies enlarged lymph nodes - Allergic/Immunologic Denies lip swelling Meds Home Medications Medication Instructions Recorded Confirmed Type aspirin 81 mg tablet,delayed 81 mg PO DAILY 06/23/18 01/14/19 History release atorvastatin 10 mg tablet 10 mg PO DAILY 06/23/18 01/14/19 History metoprolol succinate ER 25 mg 25 mg PO DAILY 06/23/18 01/14/19 History tablet,extended release 24 hr furosemide 20 mg tablet 20 mg PO DAILY 07/04/18 01/14/19 History ipratropium bromide 17 1 puff INHALATION Q6H 08/08/18 01/14/19 History mcg/actuation HFA aerosol inhaler buspirone 10 mg tablet 10 mg PO TID 30 Days #90 tab 08/19/18 01/14/19 History clonidine HCl 0.1 mg tablet 0.1 mg PO HS 30 Days #30 tab 08/19/18 01/15/19 History dicyclomine 10 mg capsule 10 mg PO BIDP PRN #60 cap 12/30/18 01/14/19 History hydroxyzine HCl 25 mg tablet 25 mg PO BID PRN #60 tab 12/30/18 01/14/19 History potassium chloride ER 20 mEq 20 meq PO DAILY #90 tab 12/30/18 01/14/19 History tablet,extended release(part/cryst) raloxifene 60 mg tablet 60 mg PO DAILY #30 tab 12/30/18 01/14/19 History Estradiol 1 mg PO DAILY 01/14/19 01/15/19 History Cyanocobalamin (Vitamin B-12) 100 mcg PO DAILY 01/15/19 01/15/19 History [Vitamin B-12] Allergies Allergy/AdvReac Type Severity Reaction Status Date / Time codeine Allergy Mild Verified 12/30/18 13:34 budesonide [From SYMBICORT] Allergy Unknown Verified 12/30/18 13:34 formoterol [From SYMBICORT] Allergy Unknown Verified 12/30/18 13:34 Exam Vital signs and Labs for Last 24 Hours: Temp Pulse Resp BP Pulse Ox 98.3 F 64 17 129/90 97 01/15/19 07:45 01/15/19 07:45 01/15/19 08:00 01/15/19 07:45 01/15/19 08:00 Laboratory Results - last 24 hr 01/14/19 11:30: Urine Color Yellow, Urine Appearance Clear, Urine pH 6.5, Ur Specific [place] 1.010, Urine Protein Negative, Urine Glucose (UA) Negative, Urine Ketones Negative, Urine Blood Trace-i, Urine Nitrate Negative, Urine Bilirubin Negative, Urine Urobilinogen 0.2, Ur Leukocyte Esterase Negative, Urine RBC 3-5, Urine WBC 5-10, Ur Squamous Epith Cells 10-20, Urine Bacteria 1+ 01/14/19 11:40: WBC 8.4, RBC 5.33, Hgb 16.6 H, Hct 49.7 H, MCV 93.3, MCH 31.1, MCHC 33.4, RDW 12.8, Plt Count 260, MPV 8.3, Neut % (Auto) 66.5, Lymph % (Auto) 26.1, [place] % (Auto) 6.4, Eos % (Auto) 0.6, Baso % (Auto) 0.3, Neut # (Auto) 5.6, Lymph # (Auto) 2.2, [place] # (Auto) 0.5, Eos # (Auto) 0.1, Baso # (Auto) 0.0 01/14/19 11:40: Sodium 135 L, Potassium 3.4 L, Chloride 98, Carbon Dioxide 29, Anion Gap 11.4, BUN 8, Creatinine 0.86, Estimated Creat Clear 60, Estimated GFR 65, Est GFR ( Amer) 79, Glucose 127 H, Calcium 9.1, Total Bilirubin 0.5, AST 23, ALT 21, Alkaline Phosphatase 169 H, Troponin I < 0.02, Total Protein 8.3 H D, Albumin 4.0, Globulin 4.3 H, Albumin/Globulin Ratio 0.9 L, Lipase 117 01/14/19 13:22: Lactate 0.6 01/14/19 16:43: Troponin I < 0.02 01/14/19 22:20: Troponin I < 0.02 01/15/19 06:41: WBC 4.8 D, RBC 4.63, Hgb 14.3 D, Hct 43.6, MCV 94.1, MCH 30.9, MCHC 32.8, RDW 12.8, Plt Count 191 D, MPV 8.5, Neut % (Auto) 56.7, Lymph % (Auto) 32.7, [place] % (Auto) 7.7, Eos % (Auto) 2.6, Baso % (Auto) 0.2, Neut # (Auto) 2.7, Lymph # (Auto) 1.6, [place] # (Auto) 0.4, Eos # (Auto) 0.1, Baso # (Auto) 0.0 01/15/19 06:41: Sodium 138, Potassium 3.9, Chloride 102, Carbon Dioxide 29, Anion Gap 10.9, BUN 8, Creatinine 0.80, Estimated Creat Clear 60, Estimated GFR 71, Est GFR ( Amer) 86, Glucose 101 D, Calcium 8.7 I & O for Last 24 hours: Intake & Output 01/12/19 01/13/19 01/14/19 01/15/19 11:59 11:59 11:59 11:59 Intake Total 2611 / 2611 Balance 2611 / 2611 Weight 160 lb 161 lb 4 oz - Constitutional no acute distress - *Routine HEENT Exam Head: Present: normocephalic Eye: Present: PERRL ENT: Present: mucous membranes moist - *Routine Neck Exam Present: supple. Absent: lymphadenopathy - *Routine Respiratory Exam Present: wheezes, diminished air movement - *Routine Cardiovascular Exam Present: RRR - *Routine Abdominal Exam Present: soft, normoactive bowel sounds. Absent: tenderness, distended - *Routine Extremities Exam Present: full ROM. Absent: cyanosis, clubbing, edema - *Routine Skin Exam Present: intact, warm. Absent: rash - *Routine Neurological Exam Present: alert, oriented X3 - Routine Psychiatric Exam Present: normal affect Assessment and Plan (1) Pneumonia Current visit: Yes Status: Acute Qualifiers: Pneumonia type: due to unspecified organism Laterality: left Lung location: lower lobe of lung Qualified Code(s): J18.1 - Lobar pneumonia, unspecified organism Category: Medical Code(s): J18.9 - Pneumonia, unspecified organism (2) Ureteric stone Current visit: Yes Status: Acute Category: Medical Code(s): N20.1 - Calculus of ureter (3) COPD with exacerbation Current visit: No Status: Acute Category: Medical Code(s): J44.1 - Chronic obstructive pulmonary disease with (acute) exacerbation (4) Tobacco abuse Current visit: No Status: Acute Category: Medical Code(s): Z72.0 - Tobacco use - Assessment and plan all Dx Assessment and Plan for all problems:: discussed pt with ailyn, all orders per ailyn
--- NOTE | 2019-01-15 09:59 | Pharmacy Consult Notes ---
[facility] Pharmacy VTE Monitoring - Patient Demographics Admission date: 01/14/19 Report Date: 01/15/19 Time: 09:59 Allergies/Adverse Reactions: Patient Allergies codeine Allergy (Mild, Verified 12/30/18 13:34) budesonide [From SYMBICORT] Allergy (Unknown, Verified 12/30/18 13:34) formoterol [From SYMBICORT] Allergy (Unknown, Verified 12/30/18 13:34) Height: 1.7 m Weight: 73.142 kg Patient Problems: Current Active Problems (Updated 01/15/19 @ 09:35 by Bree Saenz APRN) Hypertension (Acute) Pneumonia (Acute) Ureteric stone (Acute) Ureteric colic (Acute) Constipation (Acute) - VTE Risk Labs: VTE Related Lab Results Hgb 14.3 g/dL (12.2-16.2) D 01/15/19 06:41 Hct 43.6 % (37.0-47.0) 01/15/19 06:41 Plt Count 191 K/mm3 (142-424) D 01/15/19 06:41 BUN 8 mg/dL (7-18) 01/15/19 06:41 Creatinine 0.80 mg/dL (0.55-1.02) 01/15/19 06:41 Estimated Creat Clear 60 mL/min (50-200) 01/15/19 06:41 Was VTE Risk Assessment Performed: Yes VTE Score: 5 VTE Risk Level: Low Risk - Prophylaxis VTE Prophylaxis Ordered?: Yes Types of VTE Prophylaxis: TEDS Knee High Location of Applied Device: Bilateral Lower Extremeties
[2019-01-16 06:42] LABS: Basophils % 0.2 % (0.1-2.0); Eosinophils # 0.1 K/mm3 (0.0-0.4); Eosinophils % 2.2 % (0.1-12.0); Hematocrit 41.2 % (37.0-47.0); Hemoglobin 13.5 g/dL (12.2-16.2); Lymphocytes # 1.8 K/mm3 (0.7-4.5); Lymphocytes % 28.5 % (10-50); Mean Corpuscular HGB Conc 32.7 g/dL (31.8-35.4); Mean Corpuscular Volume 94.6 fl (81-99); Mean Platelet Volume 8.6 fl (7.4-10.4); Monocytes # 0.4 K/mm3 (0.1-1.0); Monocytes % 6.2 % (1.7-9.3); Neutrophils # 4.1 K/mm3 (1.8-7.8); Neutrophils % 62.8 % (37.0-80.0); Platelet Count 181 K/mm3 (142-424); Red Blood Count 4.35 M/mm3 (4.20-5.40); White Blood Count 6.5 K/mm3 (4.8-10.8)
[2019-01-16 06:46] LABS: Anion Gap 11.2 mEq/L (5-15); Calcium 8.4 mg/dL (8.5-10.1); Potassium 3.2 mmoL/L (3.5-5.1)
--- NOTE | 2019-01-16 11:11 | Progress Note ---
Internal Medicine - PN: Subj *Date: 01/16/19 *Time: 11:15 Interval history: pt states still having abd pain but not as bad Exam Vital signs and Labs for Last 24 Hours: Temp Pulse Resp BP Pulse Ox 98.2 F 65 18 149/92 H 91 L 01/16/19 07:22 01/16/19 07:22 01/16/19 07:22 01/16/19 07:22 01/16/19 07:22 Laboratory Results - last 24 hr 01/16/19 05:44: WBC 6.5 D, RBC 4.35, Hgb 13.5, Hct 41.2, MCV 94.6, MCH 31.0, MCHC 32.7, RDW 13.0, Plt Count 181, MPV 8.6, Neut % (Auto) 62.8, Lymph % (Auto) 28.5, [place] % (Auto) 6.2, Eos % (Auto) 2.2, Baso % (Auto) 0.2, Neut # (Auto) 4.1, Lymph # (Auto) 1.8, [place] # (Auto) 0.4, Eos # (Auto) 0.1, Baso # (Auto) 0.0 01/16/19 05:44: Sodium 139, Potassium 3.2 L, Chloride 102, Carbon Dioxide 29, Anion Gap 11.2, BUN 9, Creatinine 0.76, Estimated Creat Clear 58, Estimated GFR 75, Est GFR ( Amer) 91, Glucose 96, Calcium 8.4 L I & O for Last 24 hours: Intake & Output 01/13/19 01/14/19 01/15/19 01/16/19 11:59 11:59 11:59 11:59 Intake Total 2611 / 2611 1813 / 1813 Output Total 450 / 450 Balance 2611 / 2611 1363 / 1363 Weight 160 lb 161 lb 4 oz 155 lb 5 oz - Constitutional no acute distress - *Routine HEENT Exam Head: Present: normocephalic Eye: Present: PERRL ENT: Present: mucous membranes moist - *Routine Neck Exam Present: supple. Absent: lymphadenopathy - *Routine Respiratory Exam Present: rhonchi, diminished air movement - *Routine Cardiovascular Exam Present: RRR - *Routine Abdominal Exam Present: soft, normoactive bowel sounds, tenderness. Absent: distended, rebound - *Routine Extremities Exam Absent: cyanosis, clubbing, edema - *Routine Skin Exam Present: warm. Absent: rash - *Routine Neurological Exam Present: alert, oriented X3 Assessment and Plan (1) Pneumonia Current visit: Yes Status: Acute Qualifiers: Pneumonia type: due to unspecified organism Laterality: left Lung location: lower lobe of lung Qualified Code(s): J18.1 - Lobar pneumonia, unspecified organism Category: Medical Code(s): J18.9 - Pneumonia, unspecified organism (2) Ureteric stone Current visit: Yes Status: Acute Category: Medical Code(s): N20.1 - Calculus of ureter (3) COPD with exacerbation Current visit: No Status: Acute Category: Medical Code(s): J44.1 - Chronic obstructive pulmonary disease with (acute) exacerbation (4) Tobacco abuse Current visit: No Status: Acute Category: Medical Code(s): Z72.0 - Tobacco use - Assessment and plan all Dx Assessment and Plan for all problems:: discussed pt with Dr Tesfaye he will see pt later today all orders per Dr ailyn [facility] [place] [facility] [place]
--- NOTE | 2019-01-16 12:16 | Consult Report ---
History of Present Illness Consult date: 01/16/19 Requesting physician: Gabino Tesfaye Consult reason: chest pain Chief complaint: Lower chest/upper abdominal pain Additional Medical History:: 1. Tobacco use, continued A. COPD B. Asthma 2. Abnormal stress test, 06/2018 A. Cardiac cath,07/2018, ANGIOGRAPHIC RESULTS: 1. The left main artery normal 2. The left anterior descending artery normal 3. The circumflex artery normal 4. The right coronary artery dominant normal 5. The VALENZUELA ventriculogram reveals slightly hyperdynamic at 70% 6. The left ventricular end-diastolic pressure 20-25 mmHg IMPRESSION: 1. Normal coronary arteries 2. Slightly hyperdynamic ejection fraction consistent with diastolic dysfunction 3. Elevated LVEDP consistent with diastolic dysfunction 3. Hypertension A. Echo, 06/2018, 1. Moderately enlarged left atrium, normal left ventricular size, visually estimated ejection fraction 55% with no regional wall motion abnormality, diastolic parameters are inconclusive. 2. Mild mitral and tricuspid regurgitation 3. No significant pericardial effusion noted 4. Chest pain/abdominal pain, 01/[address] of chest showing left-sided pneumonia with mild aortic tortuosity B. 9 mm x 10 mm nonobstructing calculus lower pole left kidney by CT of the abdomen 01/2019 5. Hyperlipidemia History of present illness: 68 years old female with history of abdominal surgeries including cholecystectomy,appendectomy, Hysterectomy and a gastric bypass. Pt states 2 days ago she developed gradual progressive pain on the left side of the abdomen radiating to the left flank region associated with nausea and dry heaves. She denies having hematemesis coffee-ground emesis,melanotic stool or bleeding per rectum. Pt admitted for pneumonia and kidney stone The above per APOORVA Carrasco for Dr. Tesfaye Cardiology consulted for abnormal chest CT for mild aortic tortuosity. Patient relates lower chest upper abdominal discomfort but denies any exertional chest pain, pressure or tightness. She does have COPD and does have a chronic exertional dyspnea. 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 [facility] History Medical History: Reports:: Anxiety, Asthma, Chronic Obstructive Pulmonary Disease (COPD), Depression, Gastroesophageal Reflux Disease(GERD), Heart Murmur, Hyperlipidemia, Hypertension Denies:: Cancer, Diabetes Mellitus Type 1, Diabetes Mellitus Type 2, Internal Pacemaker, MRSA, Osteoporosis, Seizures, Transient Ischemic Attacks (TIA) *Have you ever received a pneumonia vaccine?: Yes *Have you received a flu vaccine this season?: Yes Other Medical History: Reports: Arthritis, Cataracts. Denies: Blood Transfusion Reaction, Chemotherapy, Fibromyalgia, Liver Disease, Osteoporosis, Sinus Problems, Thyroid Disease Laterality Cases: Left: Arthroscopy Hip, Bilateral: Carpal Tunnel Release Other Surgeries: Yes: Appendectomy, Bariatric Surgery, Cardiac Catheterization, Cholecystectomy, Colonoscopy, EGD, Hernia Repair, Hysterectomy-Total, Skin Cancer Excision, Tubal Ligation. No: Cardiac Surgery, Coronary Stent, Pacemaker, Plastic Surgery Amputation: No Fractures: No - *Social History Educational Level: Completed High School Smoking Status: Current every day smoker Tobacco Type: cigarettes # Packs/Day (cigarettes): 1 Alcohol Intake: never Alcohol Intake Frequency:: other Substance Use Type: denies use *Occupational Status:: retired Housing: house Household Members: spouse *Travel in the last 8 weeks: None - Psychiatric History Expresses thoughts of harming self/others: None Suicide Plan Description: No Plan Pschychiatric History:: Reports:: Anxiety, Depression Family Hx:: Coronary Artery Disease, Stroke Meds Home Medications Medication Instructions Recorded Confirmed Type aspirin 81 mg tablet,delayed 81 mg PO DAILY 06/23/18 01/14/19 History release atorvastatin 10 mg tablet 10 mg PO DAILY 06/23/18 01/14/19 History metoprolol succinate ER 25 mg 25 mg PO DAILY 06/23/18 01/14/19 History tablet,extended release 24 hr furosemide 20 mg tablet 20 mg PO DAILY 07/04/18 01/14/19 History ipratropium bromide 17 1 puff INHALATION Q6H 08/08/18 01/14/19 History mcg/actuation HFA aerosol inhaler buspirone 10 mg tablet 10 mg PO TID 30 Days #90 tab 08/19/18 01/14/19 History clonidine HCl 0.1 mg tablet 0.1 mg PO HS 30 Days #30 tab 08/19/18 01/15/19 History dicyclomine 10 mg capsule 10 mg PO BIDP PRN #60 cap 12/30/18 01/14/19 History hydroxyzine HCl 25 mg tablet 25 mg PO BID PRN #60 tab 12/30/18 01/14/19 History potassium chloride ER 20 mEq 20 meq PO DAILY #90 tab 12/30/18 01/14/19 History tablet,extended release(part/cryst) raloxifene 60 mg tablet 60 mg PO DAILY #30 tab 12/30/18 01/14/19 History Estradiol 1 mg PO DAILY 01/14/19 01/15/19 History Cyanocobalamin (Vitamin B-12) 100 mcg PO DAILY 01/15/19 01/15/19 History [Vitamin B-12] Allergies Allergy/AdvReac Type Severity Reaction Status Date / Time codeine Allergy Mild Verified 12/30/18 13:34 budesonide [From SYMBICORT] Allergy Unknown Verified 12/30/18 13:34 formoterol [From SYMBICORT] Allergy Unknown Verified 12/30/18 13:34 Review of Systems - *Cardiovascular Reports chest pain, Reports shortness of breath with activity - *Respiratory Reports cough, Reports shortness of breath with activity, Reports wheezing - *Gastrointestinal Reports abdominal pain, Denies nausea, Denies vomiting - *Genitourinary Denies blood in urine, Denies vaginal discharge - *Musculoskeletal Reports back pain, Denies joint pain - *Neurologic Denies abnormal hearing Exam Vital signs and Labs for Last 24 Hours: Temp Pulse Resp BP Pulse Ox 98.2 F 65 18 149/92 H 91 L 01/16/19 07:22 01/16/19 07:22 01/16/19 07:22 01/16/19 07:22 01/16/19 07:22 Laboratory Results - last 24 hr 01/16/19 05:44: WBC 6.5 D, RBC 4.35, Hgb 13.5, Hct 41.2, MCV 94.6, MCH 31.0, MCHC 32.7, RDW 13.0, Plt Count 181, MPV 8.6, Neut % (Auto) 62.8, Lymph % (Auto) 28.5, [place] % (Auto) 6.2, Eos % (Auto) 2.2, Baso % (Auto) 0.2, Neut # (Auto) 4.1, Lymph # (Auto) 1.8, [place] # (Auto) 0.4, Eos # (Auto) 0.1, Baso # (Auto) 0.0 01/16/19 05:44: Sodium 139, Potassium 3.2 L, Chloride 102, Carbon Dioxide 29, Anion Gap 11.2, BUN 9, Creatinine 0.76, Estimated Creat Clear 58, Estimated GFR 75, Est GFR ( Amer) 91, Glucose 96, Calcium 8.4 L I & O for Last 24 hours: Intake & Output 01/14/19 01/15/19 01/16/19 01/17/19 11:59 11:59 11:59 11:59 Intake Total 2611 / 2611 1813 / 1813 Output Total 450 / 450 Balance 2611 / 2611 1363 / 1363 Weight 160 lb 161 lb 4 oz 155 lb 5 oz - *Routine HEENT Exam Head: Present: normocephalic Eye: Present: EOMI, PERRL ENT: Present: mucous membranes moist - *Routine Neck Exam Present: supple. Absent: JVD, carotid bruit - *Routine Respiratory Exam Present: decreased breath sounds, wheezes. Absent: accessory muscle use, rales, rhonchi - *Routine Cardiovascular Exam Present: RRR. Absent: murmur, gallop, rubs - *Routine Abdominal Exam Present: soft. Absent: tenderness, distended, guarding - *Routine Extremities Exam Absent: edema, calf tenderness - *Routine Neurological Exam Present: alert, oriented X3, moving all extremities Assessment and Plan (1) Pneumonia Current visit: Yes Status: Acute Qualifiers: Pneumonia type: due to unspecified organism Laterality: left Lung location: lower lobe of lung Qualified Code(s): J18.1 - Lobar pneumonia, unspecified organism Category: Medical Code(s): J18.9 - Pneumonia, unspecified organism (2) Ureteric stone Current visit: Yes Status: Acute Category: Medical Code(s): N20.1 - Calculus of ureter (3) COPD with exacerbation Current visit: No Status: Acute Category: Medical Code(s): J44.1 - Chronic obstructive pulmonary disease with (acute) exacerbation (4) Tobacco abuse Current visit: No Status: Acute Category: Medical Code(s): Z72.0 - Tobacco use - Assessment and plan all Dx Assessment and Plan for all problems:: 1. Mild aortic tortuosity on CT scan of the chest. No further evaluation or specific recommendations beyond control of blood pressure needed at this time. Patient with recent cardiac catheterization showing normal coronary arteries and normal left ventricular ejection fraction. Patient was recently started on losartan 25 mg at bedtime (due to dizziness if she takes it in the AM) last month but is not listed on her home medications (she states she ran out recently). Would like to discontinue clonidine and start losartan 25 mg qHS. 2. Thank you for this referral. Please call again if needed.
[2019-01-17 07:26] LABS: Basophils % 0.2 % (0.1-2.0); Eosinophils # 0.1 K/mm3 (0.0-0.4); Eosinophils % 2.1 % (0.1-12.0); Hematocrit 43.5 % (37.0-47.0); Hemoglobin 13.7 g/dL (12.2-16.2); Lymphocytes # 1.8 K/mm3 (0.7-4.5); Lymphocytes % 34.3 % (10-50); Mean Corpuscular HGB Conc 31.5 g/dL (31.8-35.4); Mean Corpuscular Hemoglobin 30.2 pg (27.0-31.2); Mean Corpuscular Volume 95.7 fl (81-99); Mean Platelet Volume 8.6 fl (7.4-10.4); Monocytes # 0.4 K/mm3 (0.1-1.0); Monocytes % 6.7 % (1.7-9.3); Neutrophils % 56.7 % (37.0-80.0); Platelet Count 184 K/mm3 (142-424); Red Blood Count 4.55 M/mm3 (4.20-5.40); Red Cell Distribution Width 12.9 % (11.5-17.5); White Blood Count 5.2 K/mm3 (4.8-10.8)
[2019-01-17 07:29] LABS: Anion Gap 9.5 mEq/L (5-15); Calcium 8.4 mg/dL (8.5-10.1); Potassium 3.5 mmoL/L (3.5-5.1)
--- NOTE | 2019-01-17 08:12 | Progress Note ---
Subjective Date: 01/17/19 Time: 08:09 Principal diagnosis: Pneumonia Interval history: 68-year-old white female in bed in no acute distress. Some mild dizziness noted with standing. Patient is anxious to go home today. Exam Vital signs and Labs for Last 24 Hours: Temp Pulse Resp BP Pulse Ox 98.0 F 60 20 142/80 H 95 01/17/19 04:00 01/17/19 04:00 01/17/19 04:00 01/17/19 04:00 01/17/19 04:00 Laboratory Results - last 24 hr 01/17/19 06:20: WBC 5.2, RBC 4.55, Hgb 13.7, Hct 43.5, MCV 95.7, MCH 30.2, MCHC 31.5 L, RDW 12.9, Plt Count 184, MPV 8.6, Neut % (Auto) 56.7, Lymph % (Auto) 34.3, [place] % (Auto) 6.7, Eos % (Auto) 2.1, Baso % (Auto) 0.2, Neut # (Auto) 3.0, Lymph # (Auto) 1.8, [place] # (Auto) 0.4, Eos # (Auto) 0.1, Baso # (Auto) 0.0 01/17/19 06:20: Sodium 140, Potassium 3.5, Chloride 105, Carbon Dioxide 29, Anion Gap 9.5, BUN 11, Creatinine 0.77, Estimated Creat Clear 58, Estimated GFR 74, Est GFR ( Amer) 90, Glucose 88, Calcium 8.4 L I & O for Last 24 hours: Intake & Output 01/14/19 01/15/19 01/16/19 01/17/19 11:59 11:59 11:59 11:59 Intake Total 2611 / 2611 1893 / 1893 191 / 1911 Output Total 450 / 450 450 / 450 Balance 2611 / 2611 1443 / 1443 1461 / 1461 Weight 160 lb 161 lb 4 oz 155 lb 5 oz 155 lb 5 oz Microbiology Reports for the Last 24 Hours: Microbiology 01/14/19 13:22 Blood Blood Culture - Preliminary NO GROWTH AFTER 48 HOURS 01/14/19 13:22 Blood Blood Culture - Preliminary NO GROWTH AFTER 48 HOURS - *Routine HEENT Exam Head: Present: normocephalic Eye: Present: EOMI, PERRL ENT: Present: mucous membranes moist - *Routine Respiratory Exam Present: rhonchi, diminished air movement. Absent: accessory muscle use, rales, wheezes - *Routine Cardiovascular Exam Present: RRR. Absent: murmur, gallop, rubs - *Routine Neurological Exam Present: alert, oriented X3, moving all extremities Progress Note: A&P (1) Pneumonia Status: Acute Current Visit: Yes (2) Ureteric stone Status: Acute Current Visit: Yes (3) COPD with exacerbation Status: Acute Current Visit: No (4) Tobacco abuse Status: Acute Current Visit: No Assessment and Plan for All Diagnoses:: Stable from a cardiac standpoint for discharge home. Recommend follow-up in our office in 2 to 3 weeks. Continue aspirin 81 mg daily, Lipitor 10 mg daily, metoprolol XL 25 mg daily, Lasix 20 mg daily, potassium 20 mEq daily and losartan 25 mg daily (in place of the Avapro 37.5 mg daily she has been getting here).
--- NOTE | 2019-01-17 08:37 | Discharge Summary ---
General - General Admission date:: 01/14/19 Discharge date: 01/17/19 HPI HPI: 68 years old female with history of abdominal surgeries including cholecystectomy,appendectomy, Hysterectomy and a gastric bypass. Pt states 2 days ago she developed gradual progressive pain on the left side of the abdomen radiating to the left flank region associated with nausea and dry heaves. She denies having hematemesis coffee-ground emesis,melanotic stool or bleeding per rectum. Pt admitted for pneumonia and kidney stone Hospital Course Hospital Course: pneumonia-IV antibiotics, monitoring of vital signs, unable to obtain sputum culture. chest x ray:IMPRESSION: Probable left lower lobe pneumonic infiltrate versus atelectasis and a somewhat favor the former. ct chest:FINDINGS: The lung francis are well expanded. There is slight elevation left hemidiaphragm. There is dense consolidation in the posterior basilar segment left lower lobe with air bronchograms noted and findings are consistent with acute pneumonia. There is no definite left hilar mass or endobronchial mass. The remainder left lung field is clear and the right lung field is well expanded and clear. There is borderline cardio megaly with mild aortic tortuosity with is no pulmonary congestion. Scans into the upper abdomen show both adrenal glands are normal. There has been previous gastric bypass surgery. There are prominent degenerative changes lower thoracic spine. IMPRESSION: Left lower lobe pneumonia primarily posterior basilar segment and suggest continued follow-up to assess clearing. Abd-pain medicine, IV fluids, ct abd/pelvis IMPRESSION: 1. Dense pneumonia with partial volume loss posterior basal segment left lower lobe. Follow-up films to assess clearing. 2. Nonobstructing calculus left kidney. 3. Findings of moderate right-sided constipation Today patient states she feels better and would like to go home. Patient states she had slight pain overnight but nothing like before. Will discharge patient home continue antibiotics follow-up in the office in 1 week. Encourage smoking sensation. Patient needs to follow-up with [facility] or primary care to see about stopping hormone due to increased risk at her age. Objective Vital signs: Temp Pulse Resp BP Pulse Ox 98.4 F 73 18 145/74 H 93 L 01/17/19 08:00 01/17/19 08:00 01/17/19 08:00 01/17/19 08:00 01/17/19 08:00 no acute distress - *Routine HEENT Exam Head: Present: normocephalic Eye: Present: PERRL ENT: Present: mucous membranes moist - *Routine Respiratory Exam Present: wheezes, diminished air movement - *Routine Cardiovascular Exam Present: RRR - *Routine Abdominal Exam Present: soft, normoactive bowel sounds, tenderness. Absent: distended, guarding - *Routine Extremities Exam Present: full ROM - *Routine Skin Exam Present: intact - *Routine Neurological Exam Present: alert, oriented X3 - Routine Psychiatric Exam Present: normal affect Results Labs on day of discharge: Labs from last 24 hours 01/17/19 01/17/19 06:20 06:20 WBC 5.2 RBC 4.55 Hgb 13.7 Hct 43.5 MCV 95.7 MCH 30.2 MCHC 31.5 L RDW 12.9 Plt Count 184 MPV 8.6 Neut % (Auto) 56.7 Lymph % (Auto) 34.3 [place] % (Auto) 6.7 Eos % (Auto) 2.1 Baso % (Auto) 0.2 Neut # (Auto) 3.0 Lymph # (Auto) 1.8 [place] # (Auto) 0.4 Eos # (Auto) 0.1 Baso # (Auto) 0.0 Sodium 140 Potassium 3.5 Chloride 105 Carbon Dioxide 29 Anion Gap 9.5 BUN 11 Creatinine 0.77 Estimated Creat Clear 58 Estimated GFR 74 Est GFR ( Amer) 90 Glucose 88 Calcium 8.4 L Preliminary micro results at discharge 01/14/19 13:22 Blood Culture - Preliminary Blood NO GROWTH AFTER 48 HOURS 01/14/19 13:22 Blood Culture - Preliminary Blood NO GROWTH AFTER 48 HOURS - Additional Comments Rounded with Dr. Tesfaye all orders per [facility] Discharge home DS: Diagnosis - Discharge Diagnosis (1) Pneumonia Status: Acute (2) Ureteric stone Status: Acute (3) COPD with exacerbation Status: Acute (4) Tobacco abuse Status: Acute Discharge Plan - Patient Discharge Instructions ACTIVITY: Continue current activity DIET: continue same diet Patient Instructions: DI for Kidney Stones, DI for Pneumonia -- Adult, DI for Constipation - Follow up Plan Follow up with: Alina George APRN [Nurse Practitioner] - 1 week Parrish Ashley MD [Staff Physician] - 2 weeks Disposition: Home, Self-[facility] Medications: Home Medications Medication Instructions Recorded Confirmed Type aspirin 81 mg tablet,delayed 81 mg PO DAILY 06/23/18 01/14/19 History release atorvastatin 10 mg tablet 10 mg PO DAILY 06/23/18 01/14/19 History metoprolol succinate ER 25 mg 25 mg PO DAILY 06/23/18 01/14/19 History tablet,extended release 24 hr furosemide 20 mg tablet 20 mg PO DAILY 07/04/18 01/14/19 History ipratropium bromide 17 1 puff INHALATION Q6H 08/08/18 01/14/19 History mcg/actuation HFA aerosol inhaler buspirone 10 mg tablet 10 mg PO TID 30 Days #90 tab 08/19/18 01/14/19 History clonidine HCl 0.1 mg tablet 0.1 mg PO HS 30 Days #30 tab 08/19/18 01/15/19 History dicyclomine 10 mg capsule 10 mg PO BIDP PRN #60 cap 12/30/18 01/14/19 History hydroxyzine HCl 25 mg tablet 25 mg PO BID PRN #60 tab 12/30/18 01/14/19 History potassium chloride ER 20 mEq 20 meq PO DAILY #90 tab 12/30/18 01/14/19 History tablet,extended release(part/cryst) raloxifene 60 mg tablet 60 mg PO DAILY #30 tab 12/30/18 01/14/19 History Estradiol 1 mg PO DAILY 01/14/19 01/15/19 History Cyanocobalamin (Vitamin B-12) 100 mcg PO DAILY 01/15/19 01/15/19 History [Vitamin B-12] Losartan Potassium 25 mg PO DAILY 30 Days #30 tab 01/17/19 Rx levoFLOXacin [Levaquin 500mg 500 mg PO DAILY #5 tab 01/17/19 Rx tab] Prescriptions/Medication Reconciliation: New Losartan Potassium 25 mg PO DAILY 30 Days #30 tab levoFLOXacin [Levaquin 500mg tab] 500 mg PO DAILY #5 tab Continued atorvastatin 10 mg tablet 10 mg PO DAILY metoprolol succinate ER 25 mg tablet,extended release 24 hr 25 mg PO DAILY buspirone 10 mg tablet 10 mg PO TID 30 Days #90 tab dicyclomine 10 mg capsule 10 mg PO BIDP PRN #60 cap PRN Reason: IBS raloxifene 60 mg tablet 60 mg PO DAILY #30 tab aspirin 81 mg tablet,delayed release 81 mg PO DAILY furosemide 20 mg tablet 20 mg PO DAILY ipratropium bromide 17 mcg/actuation HFA aerosol inhaler 1 puff INHALATION Q6H Estradiol 1 mg PO DAILY Cyanocobalamin (Vitamin B-12) [Vitamin B-12] 100 mcg PO DAILY Discontinued hydroxyzine HCl 25 mg tablet 25 mg PO BID PRN #60 tab PRN Reason: Anxiety potassium chloride ER 20 mEq tablet,extended release(part/cryst) 20 meq PO DAILY #90 tab clonidine HCl 0.1 mg tablet 0.1 mg PO HS 30 Days #30 tab
== END 2019-01-17 11:14 | disposition home or self-care (01) ==
LOC: ER 11:23 → 2ND 11:23
PROVIDERS: ADMIT Internal Medicine Adolescent Medicine; ATTEND Emergency Medicine
DX: E78.5 Hyperlipidemia, unspecified; F41.9 Anxiety disorder, unspecified; J18.9 Pneumonia, unspecified organism; Z79.890 Hormone replacement therapy; Z79.82 Long term (current) use of aspirin; I10 Essential (primary) hypertension; Z72.0 Tobacco use; Z90.49 Acquired absence of other specified parts of digestive tract; Z90.710 Acquired absence of both cervix and uterus; Z85.828 Personal history of other malignant neoplasm of skin; M54.9 Dorsalgia, unspecified; R10.84 Generalized abdominal pain; Z79.51 Long term (current) use of inhaled steroids; Z79.899 Other long term (current) drug therapy; K59.00 Constipation, unspecified; N20.1 Calculus of ureter; Z98.84 Bariatric surgery status; Z88.8 Allergy status to other drugs, medicaments and biological substances; J44.1 Chronic obstructive pulmonary disease with (acute) exacerbation; Z88.6 Allergy status to analgesic agent
CPT/HCPCS: 36415; 71020; 71046; 71250; 74178; 80048; 80053; 81001; 83605; 83690; 84484; 85025; 87040; 96365; 96372; 96376; 99285; G0378; J1956; J2405

== ENCOUNTER → 2019-01-26 13:53 | Outpatient (CLI) | payer MEDICARE, OTHER, SELFPAY ==
--- NOTE | 2019-01-26 14:06 | XR_ITS ---
XR chest 2V HISTORY: ITS.REASON: pneumonia ORDERING PHYSICIAN: Louise Lindquist MD PATIENT AGE: 68 years COMPARISON: 01/15/2019 FINDINGS: The cardiomediastinal silhouette and pulmonary vascularity are within normal limits. The consolidation in the left lower lobe has improved. There is some increased density in the right lower lobe but is felt to be due to overlapping vessels. Upper lobes are clear. IMPRESSION: Improved left lower lobe pneumonia.
[2019-01-26 17:12] LABS: Ferritin 120 ng/mL (8-388)
== END ==
PROVIDERS: PCP Emergency Medicine; Visit Provider Specialist
DX: G47.33 Obstructive sleep apnea (adult) (pediatric) (principal); J18.9 Pneumonia, unspecified organism; E83.10 Disorder of iron metabolism, unspecified; G25.81 Restless legs syndrome
CPT/HCPCS: 36415; 71046; 82728; 94762

== ENCOUNTER → 2019-05-24 14:14 | Outpatient (CLI) | payer MEDICARE, OTHER, SELFPAY | PROVIDERS: Visit Provider Physician Assistant | DX: R39.89 Other symptoms and signs involving the genitourinary system (principal) | CPT/HCPCS: 87086 ==

== ENCOUNTER → 2019-08-17 11:43 | Outpatient (CLI) | payer MEDICARE, OTHER, SELFPAY ==
[2019-08-17 12:48] LABS: Anion Gap 12.3 mEq/L (5-15); Blood Urea Nitrogen 9 mg/dL (7-18); Calcium 8.5 mg/dL (8.5-10.1); Carbon Dioxide 31 mmol/L (21.0-32.0); Chloride 106 mmol/L (98-107); Creatinine,Serum 0.69 mg/dL (0.55-1.02); Estimated Glomerular Filt Rate 84 ml/min (>60); GFR (African American) 101 ML/MIN (>60); Glucose 89 mg/dL (74-106); Potassium 3.3 mmoL/L (3.5-5.1); Sodium 146 mmol/L (136-145)
== END ==
PROVIDERS: Visit Provider Internal Medicine Cardiovascular Disease
DX: G47.33 Obstructive sleep apnea (adult) (pediatric) (principal); I10 Essential (primary) hypertension; Z72.0 Tobacco use; Z99.89 Dependence on other enabling machines and devices
CPT/HCPCS: 36415; 80048

== ENCOUNTER → 2020-01-08 09:44 | Outpatient (CLI) | payer MEDICARE, OTHER, SELFPAY ==
[2020-01-08 10:50] VITALS: PULSE 70; PULSE 73
== END ==
PROVIDERS: PCP Emergency Medicine; Visit Provider Internal Medicine Sleep Medicine
DX: J44.1 Chronic obstructive pulmonary disease with (acute) exacerbation (principal); R06.2 Wheezing; J40 Bronchitis, not specified as acute or chronic
CPT/HCPCS: 94060; 94640; 94727; 94729

== ENCOUNTER 2020-01-18 13:02 | Outpatient (RCR) | payer MEDICARE, OTHER, SELFPAY | END 2020-01-18 13:05 | disposition home or self-care (01) | LOC: PT 13:02 | PROVIDERS: PCP Emergency Medicine; Visit Provider Emergency Medicine | DX: R22.43 Localized swelling, mass and lump, lower limb, bilateral (principal); I89.0 Lymphedema, not elsewhere classified | CPT/HCPCS: 97140; 97162; 97760 ==